=== PATIENT | female | born 1965 | race Caucasian/White ===

== ENCOUNTER 2022-04-05 05:18 | Emergency (ER) | payer MEDICAID ==
[~2022-04-05] VITALS: Ht 170.2 cm; Wt 74.4 kg
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
--- NOTE | 2022-04-05 05:43 | NUR ---
EKG DONE AT BEDSIDE
[2022-04-05] MEDS ORDERED: LIDOCAINE VISCOUS 2% UD 15 ML UDC ONE (05:52)
[2022-04-05] MEDS ORDERED: MAG HYDROX/AL HYDROX/SIMETH 30 ML UDC ONE (05:52)
[2022-04-05] MEDS: LIDOCAINE VISCOUS 2% UD 15 ML UDC MM ONE (05:55)
[2022-04-05] MEDS: MAG HYDROX/AL HYDROX/SIMETH 30 ML UDC PO ONE (05:55)
--- NOTE | 2022-04-05 06:05 | NUR ---
SEEN BY DR WATERS AT BEDSIDE.
--- NOTE | 2022-04-05 06:05 | NUR ---
[employer] AT BEDSIDE.
[2022-04-05 06:12] LABS: BASOPHILS % (AUTO) 0.2 % (0.0-2.0); EOSINOPHILS % (AUTO) 1.7 % (0.0-6.0); HEMATOCRIT 43 % (33-45); HEMOGLOBIN 14.4 g/dL (11.5-14.8); LYMPHOCYTES # (AUTO) 1.8 K/uL (0.8-4.8); LYMPHOCYTES % (AUTO) 33.4 % (20.0-44.0); MEAN CORPUSCULAR HGB CONC 33 g/dl (31.0-36.0); MEAN CORPUSCULAR VOLUME 85 fL (82-100); MONOCYTES # (AUTO) 0.4 K/uL (0.1-1.30); MONOCYTES % (AUTO) 6.6 % (2.0-12.0); NEUTROPHILS # (AUTO) 3.1 K/uL (1.8-8.9); NEUTROPHILS % (AUTO) 58.1 % (43.0-81.0); PLATELET COUNT (AUTO) 196 K/uL (150-450); RED BLOOD CELL COUNT(AUTO) 5.06 MIL/uL (4.0-5.2); WHITE BLOOD COUNT (AUTO) 5.4 K/uL (4.3-11.0)
--- NOTE | 2022-04-05 06:17 | NUR ---
CXR DONE AT BEDSIDE.
[2022-04-05] MEDS ORDERED: PANTOPRAZOLE 40 MG VIAL ONE (06:18)
[2022-04-05] MEDS: PANTOPRAZOLE 40 MG VIAL IV ONE (06:30)
[2022-04-05 06:54] LABS: CALCIUM, SERUM 9.8 mg/dL (8.5-10.1); POTASSIUM 4.7 mmol/L (3.5-5.1)
[2022-04-05 08:12] LABS: BILIRUBIN,TOTAL 0.1 mg/dL (0.2-1.0)
[2022-04-05 08:13] LABS: TOTAL PROTEIN, SERUM 7.2 g/dL (6.4-8.2)
[2022-04-05] MEDS ORDERED: PANT40TA2 PO (08:30)
[2022-04-05] MEDS ORDERED: ONDA4TAB5 PO (08:30)
[2022-04-05 08:45] LABS: ALBUMIN 3.7 g/dL (3.4-5.0)
[2022-04-05 09:08] VITALS: BP 103/60
--- NOTE | 2022-04-05 09:08 | NUR ---
IV removed. Catheter intact and site benign. Pressure and 4x4 applied to site. No bleeding noted.Patient discharged to home in stable condition. Written and verbal after care instructions given. Patient verbalizes understanding of instruction.
== END 2022-04-05 09:09 | disposition home or self-care (01) ==
LOC: ER 06:04
DX: K21.9 Gastro-esophageal reflux disease without esophagitis (principal); E11.9 Type 2 diabetes mellitus without complications; Z88.8 Allergy status to other drugs, medicaments and biological substances; Z79.899 Other long term (current) drug therapy
CPT/HCPCS: 99285; 96374; 71045; 93005; 85025; 80048; 83690; 80076; 36415; C9113